=== PATIENT | female | born 1965 | race Hispanic/Latino ===

== ENCOUNTER 2018-07-27 08:10 | Outpatient (CLI) | payer BC ==
--- NOTE | 2018-07-27 09:34 | ULT ---
ABDOMINAL ULTRASOUND: Date: 07/27/18 HISTORY: Epigastric abdominal pain which started this morning. History of prior cholecystectomy. FINDINGS: The gallbladder is not visualized, consistent with reported history of prior cholecystectomy. Common duct measures 0.7 cm in diameter, which is within normal limits for post cholecystectomy changes. The liver is at the upper limits of normal in size measuring 17.8 cm, but otherwise demonstrates a no rmal sonographic appearance. The visualized portions of the pancreas, visualized portions of the IVC, abdominal aorta, and spleen demonstrate a normal sonographic appearance. The right kidney measures 10.5 cm in length and the left kidney measures 10.0 cm in length. There are echogenic foci seen within the kidneys bilaterally which do not demonstrate posterior shado wing and may be related to prominent vessels. However, the largest echogenic foci is seen in the late ral aspect of the right kidney measuring 0.5 cm. Findings could potentially represent nonobstructing renal calculi. Kidneys otherwise have a normal sonographic appearance. IMPRESSION: 1. Post cholecystectomy changes. 2. Small echogenic foci in the bilateral kidneys, larger in size on the right. There is no posterior shadowing to suggest that these echogenic foci represent nonobstructing renal calculi; although, thi s is a possibility, but findings may be related to prominent vessels within the kidneys. There is no hydronephrosis or renal mass seen. 3. Upper limits of normal in size of the liver, but the liver otherwise has a normal sonographic dominic earance. POS: [facility]
== END 2018-07-27 08:11 | disposition home or self-care (01) ==
LOC: BICULT 08:10
PROVIDERS: ATTEND Internal Medicine
DX: R10.13 Epigastric pain (principal); R93.421 Abnormal radiologic findings on diagnostic imaging of right kidney; R93.422 Abnormal radiologic findings on diagnostic imaging of left kidney; Z90.49 Acquired absence of other specified parts of digestive tract
CPT/HCPCS: 76700

== ENCOUNTER 2019-02-21 14:36 | Outpatient (CLI) | payer BC ==
--- NOTE | 2019-02-21 15:32 | ULT ---
TRANSABDOMINAL AND TRANSVAGINAL PELVIC ULTRASOUND WITH FINCH SCALE AND COLOR FLOW AND SPECTRAL DOPPLER IMAGING: HISTORY: Abnormal uterine bleeding. FINDINGS: The uterus measures 7.5 x 3.6 x 5 cm with a heterogeneous echotexture. No focal mass or endometrial fluid is seen. The endometrium measures 5 mm in thickness. The right ovary measures 1.5 x 2.3 x 1.1 cm and the left ovary measures 2.6 x 1.2 cm. No adnexal mas s or free fluid is seen in the cul-de-sac. Flow is demonstrated to both ovaries. IMPRESSION: No significant abnormalities are seen. POS: [facility]
== END 2019-02-21 14:37 | disposition home or self-care (01) ==
LOC: BICULT 14:36
PROVIDERS: ATTEND Physician Assistant
DX: N93.9 Abnormal uterine and vaginal bleeding, unspecified (principal)
CPT/HCPCS: 76856

== ENCOUNTER 2021-11-03 13:43 | Outpatient (CLI) | payer BC | END 2021-11-03 13:44 | disposition home or self-care (01) | LOC: BICULT 13:43 | PROVIDERS: ATTEND Family Medicine | DX: R10.2 Pelvic and perineal pain (principal); N20.0 Calculus of kidney; D25.9 Leiomyoma of uterus, unspecified | CPT/HCPCS: 76770; 76856 ==

== ENCOUNTER 2021-11-22 15:11 | Outpatient (CLI) | payer BC | END 2021-11-22 15:12 | disposition home or self-care (01) | LOC: BICMAMMO 15:11 | PROVIDERS: ATTEND Family Medicine | DX: Z12.31 Encounter for screening mammogram for malignant neoplasm of breast (principal) | CPT/HCPCS: 77063; 77067 ==

== ENCOUNTER 2023-02-03 15:16 | Outpatient (CLI) | payer BC | END 2023-02-03 15:17 | disposition home or self-care (01) | LOC: BICMAMMO 15:16 | PROVIDERS: ATTEND Family Medicine | DX: Z12.31 Encounter for screening mammogram for malignant neoplasm of breast (principal) | CPT/HCPCS: 77063; 77067 ==

== ENCOUNTER 2024-12-26 08:58 | Outpatient (CLI) | payer BC | END 2024-12-26 08:59 | disposition home or self-care (01) | LOC: BICCT 08:58 | PROVIDERS: ATTEND Urology | DX: N28.1 Cyst of kidney, acquired (principal); N20.0 Calculus of kidney | CPT/HCPCS: 74178 ==